=== PATIENT | male | born 1990 ===

== ENCOUNTER 2018-01-04 13:30 | Emergency (ER) | payer SELFPAY ==
[~2018-01-04] VITALS: Ht 172.7 cm; Wt 81.6 kg
--- NOTE | 2018-01-04 13:40 | NUR ---
PATIENT WAS SEEN AND EVAL BY DR JUAREZ IN ROOM 05A.
--- NOTE | 2018-01-04 14:26 | NUR ---
Patient discharged to home in stable conditon. Written and verbal after care instructions given. Patient verbalizes understanding of instructions.
[2018-01-04 14:27] VITALS: BP 130/72
== END 2018-01-04 14:27 | disposition home or self-care (01) ==
LOC: ER 13:35
DX: F41.9 Anxiety disorder, unspecified (principal)
CPT/HCPCS: 71045; A4663